=== PATIENT | female | born 1980 | race Caucasian/White ===

== ENCOUNTER 2016-08-14 20:07 | Emergency (ER) | payer OTHER ==
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
[~2016-08-14 20:07] MED LIST: FLEXERIL10 M1 PO; IBUPROFEN PO; KEFLEX500 MG PO; TYLENOL #3 PO; VOLTAREN50 MG PO
[2016-08-14 21:04] LABS: URINE APPEARANCE CLEAR; URINE BILIRUBIN NEG (NEG); URINE BLOOD NEG (NEG); URINE COLOR DK YELLOW; URINE GLUCOSE NEG (NEG); URINE KETONE TRACE (NEG); URINE LEUKOCYTE ESTERASE TRACE (NEG); URINE NITRATE NEG (NEG); URINE PROTEIN TRACE (NEG); URINE SPECIFIC GRAVITY 1.031 (1.003-1.035)
[2016-08-14 21:08] LABS: CULTURE INDICATED? YES; URINE BACTERIA AUWI 1+ (NEGATIVE)
[2016-08-14 21:22] LABS: URINE SQUAMOUS EPITHELIAL CELL MODERATE /[HPF]
== END 2016-08-15 00:02 | disposition home or self-care (01) ==
LOC: CFTX 20:07
PROVIDERS: Nurse Practitioner Family
DX: S02.2XXA Fracture of nasal bones, initial encounter for closed fracture (principal); S00.83XA Contusion of other part of head, initial encounter; S20.219A Contusion of unspecified front wall of thorax, initial encounter; S30.810A Abrasion of lower back and pelvis, initial encounter; S20.419A Abrasion of unspecified back wall of thorax, initial encounter; F17.210 Nicotine dependence, cigarettes, uncomplicated; Z79.899 Other long term (current) drug therapy; Y04.0XXA Assault by unarmed brawl or fight, initial encounter; Y92.524 Gas station as the place of occurrence of the external cause
CPT/HCPCS: 70450; 70486; 71100; 72072; 72100; 72125; 73060; 81003; 84703; 87086; 99284